=== PATIENT | female | born 1965 | race Caucasian/White ===

== ENCOUNTER 2016-07-17 10:38 | Inpatient (IN) ==
[2016-07-17] MEDS ORDERED: KETOROLAC 30 MG/1 ML VIAL IV STA (11:35)
[2016-07-17] MEDS ORDERED: HYDROmorphone 2 MG/1 ML VIAL IV STA (11:35)
[2016-07-17] MEDS ORDERED: ONDANSETRON 4 MG/2 ML VIAL IV STA (11:35)
[2016-07-17] MEDS ORDERED: SODIUM CHLORIDE 0.9% 1,000 ML IV STA ×2 (11:35→15:17)
[2016-07-17 11:43] LABS: Apearance,Urine CLOUDY (Clear); Bacteria,Urine Many /HPF (Few); Bilirubin,Urine Negative (Negative); Blood, Urine Small mg/dL (Negative); Glucose,Urine (UA) Negative (Negative); Ketones,Urine Negative (Negative); Mucus,Urine Many /LPF (Occasional); Nitrite,Urine Positive (Negative); Protein,Urine 30 MG/DL; RBC,Urine 8 /HPF (0-4); Squamous Epithelial Cell,Urine Occasional /HPF (0-10); Urine Color Yellow (Yellow); Urine Specific Gravity 1.021 (1.001-1.035); Urine Urobilinogen < 2.0 EU/DL (0.2-1.0); WBC,Urine 191 /HPF (0-6)
[2016-07-17 11:54] LABS: Basophils % 0.4 % (0.0-0.8); Eosinophils # 0.1 10*3/uL (0.0-0.87); Eosinophils % 1.8 % (0.00-10.9); Hematocrit 36.9 VOL% (35.7-47.0); Hemoglobin 12.8 GM/DL (12.0-16.0); Immature Granulocytes % 0.2 %; Immature Granulocytes Absolute 0.01 #; Lymphocytes # 1.3 10*3/uL (1.4-4.0); Lymphocytes % 23.1 % (21.3-54.2); Mean Corpuscular HGB Conc 34.7 GM/DL (32-36); Mean Corpuscular Hemoglobin 31 PG (27-34); Mean Corpuscular Volume 90.2 FL (87-102); Mean Platelet Volume 9.9 FL (9.6-12.0); Monocytes # 0.5 10*3/uL (0.11-0.8); Monocytes % 9.1 % (1.7-12.7); Neutrophils # 3.7 10*3/uL (1.4-7.4); Neutrophils % 65.4 % (38.7-73.9); Platelet Count 195 10*3/uL (130-400); Red Blood Count 4.09 10*6/uL (3.8-5.5); Red Cell Distribution Width 12.3 % (9.3-17.3); White Blood Count 5.6 10*3/uL (4.5-13.71)
[2016-07-17] MEDS ORDERED: ONDANSETRON 4 MG/2 ML VIAL ONE (12:14)
[2016-07-17] MEDS ORDERED: HYDROmorphone 2 MG/1 ML VIAL ONE (12:15)
[2016-07-17] MEDS ORDERED: KETOROLAC 30 MG/1 ML VIAL ONE (12:15)
[2016-07-17] MEDS ORDERED: cefTRIAXone 1,000 MG in SODIUM CHLORIDE 0.9% 100 ML IV STA (12:16)
[2016-07-17 12:21] LABS: Albumin 3.5 G/DL (3.4-5.0); Bilirubin,Total 0.9 MG/DL (0.2-1.0); Calcium 8.8 MG/DL (8.5-10.1); Magnesium 1.8 MG/DL (1.8-2.4); Osmolality,Calculated 283.1 MOS/KG (273-304); Potassium 3.8 MMOL/L (3.5-5.1); Total Protein 7.1 G/DL (6.4-8.3)
--- NOTE | 2016-07-17 12:25 | Emergency Department Note ---
Joseph Aj Gwan, am scribing for, and in the presence of, Bib Alcaraz MD 11 :45. Lissa Aj Charles R, MD, personally performed the services described in this documentation, ascribed by Abhay Ruiz in my presence, and it is both accurate and complete 225 . Arrival - Arrival Chief Complaint: Urogenital - Female Stated Complaint: Bleeding when urinating chest pain ED Nursing Triage Note: reports bleeding with urination that started last night with burning with urination and vaginal pain. reports she also has a knot on her chest that is tender to touch. near syncopal episode with fall following triage. Mode of Arrival: Ambulatory Limitations: No Limitations Source: Patient, Old Records Reviewed, RN Notes Reviewed Time Seen by Provider: 07/17/16 11:27 - History of Present Illness HPI Narrative: Pt is a 51 y/o female, with a hx of Hysterectomy; Cervical CA; Kidney Stones, with a c/o hematuria and vaginal pain with an onset last night. Patient stated that she began having a sharp pain in her side, vaginal pain and dysuria last night. She continued to note that she took some OTC medication with no relief. Patient then stated that this morning her sxs worsened and included left breast chest pain, fever, back pain and lightheadedness prompting her visit to the ED. At time of triage, pt's temperature was 98.7. Patient then stated that she fell last week while carrying a shelf and the shelf fell on top of her causing a near syncope episode. No other problems/complaints reported in ED. Onset (ago): day(s) Consistency: constant Severity: moderate Date of Last Menstrual Period: hyst Allergies/Adverse Reactions: Allergies Allergy/AdvReac Type Severity Reaction Status Date / Time morphine Allergy RASH Verified 07/17/16 11:02 Home Medications: Home Medications Medication Instructions Recorded Confirmed Type No Known Home Medications [No 07/17/16 07/17/16 History Known Home Medications] Review of System - Review of System 12 point system: reviewed and no additional remarkable complaints except as stated - Review of System Constitutional: Present: as per HPI, fever Genitourinary female: Present: as per HPI, dysuria, hematuria Medical,Surgical,& Family Hx - Medical History Other: History of: Miscellaneous Medical Problems (meneers disease) - Social History Smoking Status: Never smoker Exam Vital Signs: Vital Signs Temperature 98.7 F 07/17/16 10:57 Pulse Rate 82 07/17/16 10:57 Respiratory Rate 18 07/17/16 10:57 Blood Pressure 112/78 07/17/16 10:57 O2 Sat by Pulse Oximetry 100 07/17/16 10:57 - General General appearance: alert, in no apparent distress - Head Head exam: Present: atraumatic, normocephalic - Eye Eye exam: Present: normal appearance, PERRL, EOMI - ENT ENT exam: Present: normal oropharynx, mucous membranes moist, TM's normal bilaterally, normal external ear exam - Neck Neck exam: Present: full ROM, trachea midline. Absent: tenderness, meningismus , lymphadenopathy - Chest Chest inspection: Present: tenderness (Tenderness top of left breast) - Respiratory Respiratory exam: Present: normal lung sounds bilaterally. Absent: respiratory distress - Cardiovascular Cardiovascular exam: Present: regular rate, normal rhythm, normal heart sounds. Absent: murmur, rubs, gallop - Abdominal Exam Abdominal exam: Present: tenderness (LLQ) - Back Exam Back exam: Present: tenderness (Left flank tenderness) - Neurological Exam Neurological exam: Present: alert, oriented X3, CN II-XII intact. Absent: motor sensory deficit - Psychiatric Psychiatric exam: Present: normal affect, normal mood - Skin Skin exam: Present: warm, dry, intact, normal color Course - Consultations Consultation #1: Patient was instructed to follow up with OBGYN for Mammogram due to left breast tenderness. Consultation #2: Hospitalist will admit patient Time: 14:33 Results - Labs CBC & BMP: 07/17/16 11:27 07/17/16 11:27 Lab Results: I have reviewed the patients labs Labs: Laboratory Tests 07/17/16 07/17/16 11:27 11:27 WBC 5.6 RBC 4.09 Hgb 12.8 Hct 36.9 Plt Count 195 Lymph # (Auto) 1.3 L Urine pH 5.0 Ur Specific Philip 1.021 Urine Protein 30 Urine Blood Small Urine Nitrate Positive H Urine Urobilinogen < 2.0 H Urine Leukocytes Large H Urine RBC 8 Urine WBC 191 Ur Squamous Epith Cells Occasional Urine Bacteria Many Urine Mucus Many Laboratory Tests 07/17/16 11:27 Sodium 142 Potassium 3.8 Chloride 107 Carbon Dioxide 28 BUN 14 Creatinine 0.60 BUN/Creatinine Ratio 23.00 H Globulin 3.6 H Albumin/Globulin Ratio 0.9 L - Diagnostic Findings Procedure: Abdominal x-ray: report reviewed by me (No acute radiographic abnormality in the abdomen. ), Chest x-ray: report reviewed by me (No acute cardiopulmonary process. ), CT Abdomen and Pelvis: report reviewed by me (1. A few distal descending diverticula are noted. There is also minimal pericolonic stranding within the left paracolic gutter which may represent mild underlying acute diverticulitis. Correlate with clinical symptomatology. 2. Otherwise, no acute abnormality within the abdomen/pelvis to explain patient's symptoms. ) Disposition Clinical Impression: Urinary tract infection, Hematuria, Diverticulitis, Hypotension Case discussed with: patient Disposition: Still a Patient Condition: Guarded Time of Disposition: 14:34
--- NOTE | 2016-07-17 12:35 | CT Report ---
CT abdomen pelvis wo con Indication: Abdominal/pelvic pain Comparison: None. Technique: CT of the abdomen and pelvis was performed without administration of intravenous contrast. Coronal and sagittal reformatted images were additionally created and submitted for review. The total DLP is 305 mGy*cm. Findings: Very minimal posterior basilar dependent atelectatic changes are noted bilaterally. Lung bases are otherwise clear. There is no pleural or pericardial effusion. ABDOMEN: Liver/Gallbladder: Unenhanced appearance of the liver is grossly within normal limits. The gallbladder is nondistended. There is no biliary ductal dilatation or gallstones visualized. Spleen: No acute findings. Pancreas: No acute findings. Adrenals: Within normal limits in appearance. Kidneys: Both kidneys are symmetric in size. There is no evidence of obstructive uropathy. No renal stones are visualized. Bowel/mesentery: Small bowel is nondilated. There is no free fluid/air within the abdomen. There is no mesenteric adenopathy. There is a moderate amount stool noted throughout the colon which is otherwise nondilated. A few distal descending/sigmoid colon diverticula are noted. There is also minimal pericolonic stranding noted within the left paracolic gutter suggesting underlying diverticulitis. Retroperitoneum: No evidence of aortic aneurysm or significant retroperitoneal adenopathy. PELVIS: Bladder appears unremarkable for degree of distention. There has been a prior hysterectomy. There is no free fluid/adenopathy in the pelvis. BONES: No acute or suspicious osseous abnormalities are identified. IMPRESSION: 1. A few distal descending diverticula are noted. There is also minimal pericolonic stranding within the left paracolic gutter which may represent mild underlying acute diverticulitis. Correlate with clinical symptomatology. 2. Otherwise, no acute abnormality within the abdomen/pelvis to explain patient's symptoms. 07/17/2016 12:26 PM PROCEDURE INTERPRETED AT [facility] DEPARTMENT OF RADIOLOGY Final Report Signed by: Denzel Fernandez
--- NOTE | 2016-07-17 12:36 | XRay Report ---
XR abdomen 2V Clinical Information: Abdominal Pain , left lower quadrant and pelvic pain Comparison: Prior none available Findings: Bowel gas pattern is nonspecific and within normal limits. No abnormally dilated small bowel loops are identified to suggest obstruction. There is no free air identified. Scattered fecal material is noted throughout colon, which is otherwise nondilated. No abnormal focal soft tissue masses or calcific densities are identified in the abdomen or pelvis. Lung bases appear predominantly clear. There is no acute osseous abnormality. No suspicious osseous lesions are identified. Impression: No acute radiographic abnormality in the abdomen. A mild degree of fecal stasis/constipation is suspected. See the separately dictated CT abdomen pelvis report dated same day. PROCEDURE INTERPRETED AT [facility] DEPARTMENT OF RADIOLOGY Final Report Signed by: Denzel Fernandez
--- NOTE | 2016-07-17 12:37 | XRay Report ---
Exam: XR chest 1V portable Indication: Abdominal pain, diverticulitis Comparison study: None Findings: The heart, mediastinum, and bony structures are within normal limits. There is no focal consolidation, pneumothorax or pleural effusion identified. Impression: No acute cardiopulmonary process. PROCEDURE INTERPRETED AT [facility] DEPARTMENT OF RADIOLOGY Final Report Signed by: Denzel Fernandez
[2016-07-17] MEDS ORDERED: cefTRIAXone 1,000 MG VIAL ONE (13:17)
[2016-07-17] MEDS ORDERED: SODIUM CHLORIDE 0.9% 100 ML IV ONE (13:18)
[2016-07-17] MEDS ORDERED: MAGNESIUM SULF RIDER 4 GM in PREMIX 1 EACH IV PRN (15:06)
[2016-07-17] MEDS ORDERED: MAGNESIUM SULF RIDER 2 GM in PREMIX 1 EACH IV PRN (15:06)
--- NOTE | 2016-07-17 15:13 | Hospitalist History & Physical ---
Assessment and Plan - Time spent with patient Time spent with patient: Greater than 30 minutes (1) Urinary tract infection Status: Acute Assessment and plan: Start Cipro. Follow-up culture. Current Visit: Yes Qualifiers: Urinary tract infection type: acute cystitis Hematuria presence: with hematuria Qualified Code(s): N30.01 - Acute cystitis with hematuria (2) Hematuria Status: Acute Assessment and plan: Related to urinary tract infection. Follow-up culture. Current Visit: Yes (3) Diverticulitis of intestine Status: Acute Assessment and plan: Start Cipro and Flagyl. Follow-up stool studies. Check C. difficile. Current Visit: Yes Qualifiers: Diverticulitis site: large intestine Diverticulitis bleeding: without bleeding Diverticulitis complication: without perforation or abscess Qualified Code(s): K57.32 - Diverticulitis of large intestine without perforation or abscess without bleeding History of Present Illness Chief complaint: abdominal pain, diarrhea History of present illness: Ms. Stiles is a 51 year old female that presented to the emergency department today with a one-day history of abdominal pain in the left lower quadrant and diarrhea. She reports pain and pressure in the bottom left side of her abdomen and left lower quadrant. She reports multiple bouts of diarrhea last night. She also reports pain and pressure over the bladder that radiates into her vagina and some blood with urination. She denies any gross blood with defecation. She has a history of previous Clostridium difficile infection approximately 2 years ago. She underwent colonoscopy in [place] at that time. She also carries a diagnosis of irritable bowel syndrome/spastic colon. She reports the symptoms that began yesterday were quite different than her previous episodes. Evaluation in the emergency department shows an acute urinary tract infection that is nitrite positive as well as CT scan evidence of mild diverticulitis. She has been referred to the hospital service for admission for IV antibiotics and IV fluids as well as pain control. Home Medications Medication Instructions Recorded Confirmed Type No Known Home Medications [No 07/17/16 07/17/16 History Known Home Medications] Allergies Allergy/AdvReac Type Severity Reaction Status Date / Time morphine Allergy RASH Verified 07/17/16 11:02 Medical,Surgical,& Family Hx - Medical History Other: History of: Miscellaneous Medical Problems (meneers disease) - Surgical History Abdominal Surgeries: Surgical HX of: Appendectomy Reproductive Surgeries: Surgical HX of;: Hysterectomy Additional Surgical History: Previous lumpectomy and nose surgery. - Family History Family History: noncontributory - Social History Smoking Status: Never smoker Have you smoked in the last 12 months: No Frequency of Alcohol Use: None Type of Drug Use: None Functional capacity: independent ambulation 12 point system: reviewed and no additional remarkable complaints except as stated - Constitutional Constitutional: Present: as per HPI - Gastrointestinal Gastrointestinal: Present: as per HPI, abdominal pain, change in bowel habits, cramping, diarrhea, loose stools. Absent: hematemesis, hematochezia Exam - Constitutional Vitals: Period Temp Pulse Resp BP Sys/Padilla Pulse Ox Last 24 Hr 98.7 F 82 18 112/78 100 General appearance: normal weight, mild distress - Head Head exam: Present: normal inspection, normocephalic, atraumatic - Eye Eye exam: Present: EOMI Pupils: Present: CARLOS - ENT ENT exam: Present: normal exam - Respiratory Respiratory exam: Present: clear to auscultation bilaterally - Cardiovascular Cardiovascular exam: Present: regular rate and rhythm - GI/Abdominal GI/Abdominal exam: Present: normal bowel sounds, tenderness (LLL), soft. Absent : mass - Extremities Exam Extremities exam: Present: normal inspection, normal capillary refill. Absent: edema - Back Exam Back exam: Present: normal inspection - Neurological Exam Neurological exam: Present: alert, oriented X3 - Psychiatric Psychiatric exam: Present: normal affect, normal mood - Skin Skin exam: Present: normal color, warm, dry Results - Labs CBC & BMP: 07/17/16 11:27 07/17/16 11:27 Lab Results: I have reviewed the past 24 hour labs
[2016-07-17] MEDS ORDERED: MEPERIDINE 25 MG/1 ML VIAL ONE (15:28)
[2016-07-17] MEDS: MEPERIDINE 25 MG/1 ML VIAL IV PRN ×2 (15:31→21:03)
[2016-07-17] MEDS: metroNIDAZOLE INJ 500 MG in PREMIX 1 EACH IV SCH ×2 (17:35→23:39)
[2016-07-17] MEDS: CIPROFLOXACIN INJ 400 MG in PREMIX 1 EACH IV SCH (17:36)
[2016-07-17] MEDS: DEXTROSE 5% NACL 0.45% 1,000 ML IV SCH (17:36)
[2016-07-17] MEDS: ENOXAPARIN 40 MG/0.4 ML SYRINGE SUBCUT SCH (17:36)
[2016-07-17] MEDS: ACETAMINOPHEN 325 MG TABLET PO PRN (21:03)
[2016-07-17] MEDS: ONDANSETRON 4 MG/2 ML VIAL IV PRN (23:39)
[2016-07-18] MEDS: metroNIDAZOLE INJ 500 MG in PREMIX 1 EACH IV SCH ×4 (03:50→21:27)
[2016-07-18] MEDS: CIPROFLOXACIN INJ 400 MG in PREMIX 1 EACH IV SCH ×2 (04:51→16:00)
[2016-07-18 05:21] LABS: Basophils % 0.3 % (0.0-0.8); Eosinophils # 0.1 10*3/uL (0.0-0.87); Eosinophils % 2.8 % (0.00-10.9); Hematocrit 29.8 VOL% (35.7-47.0); Immature Granulocytes % 0.3 %; Immature Granulocytes Absolute 0.01 #; Lymphocytes # 1.3 10*3/uL (1.4-4.0); Lymphocytes % 37.3 % (21.3-54.2); Mean Corpuscular HGB Conc 33.6 GM/DL (32-36); Mean Corpuscular Hemoglobin 30 PG (27-34); Mean Platelet Volume 10.3 FL (9.6-12.0); Monocytes # 0.4 10*3/uL (0.11-0.8); Monocytes % 10.5 % (1.7-12.7); Neutrophils # 1.7 10*3/uL (1.4-7.4); Neutrophils % 48.8 % (38.7-73.9); Platelet Count 158 10*3/uL (130-400); Red Blood Count 3.31 10*6/uL (3.8-5.5); Red Cell Distribution Width 12.2 % (9.3-17.3); White Blood Count 3.5 10*3/uL (4.5-13.71)
[2016-07-18 05:41] LABS: Elliptocytes Few; Hypochromasia Slight; Platelet Estimate Normal
[2016-07-18] MEDS: DEXTROSE 5% NACL 0.45% 1,000 ML IV SCH ×4 (06:30→21:26)
[2016-07-18] MEDS ORDERED: KETOROLAC 30 MG/1 ML VIAL IV PRN (07:10)
[2016-07-18] MEDS: PANTOPRAZOLE 40 MG TABLET PO SCH (09:28)
[2016-07-18] MEDS: MEPERIDINE 25 MG/1 ML VIAL IV PRN ×2 (09:30→17:40)
[2016-07-18] MEDS: ONDANSETRON 4 MG/2 ML VIAL IV PRN ×2 (09:30→17:40)
[2016-07-18] MEDS: ACETAMINOPHEN 325 MG TABLET PO PRN (14:30)
[2016-07-18] MEDS: ENOXAPARIN 40 MG/0.4 ML SYRINGE SUBCUT SCH (14:32)
--- NOTE | 2016-07-18 16:49 | Hospitalist Progress Note ---
Assessment and Plan (1) Urinary tract infection Status: Acute Assessment and plan: Start Cipro. Follow-up culture.. Gram-negative rods noted. Current Visit: Yes Qualifiers: Urinary tract infection type: acute cystitis Hematuria presence: with hematuria Qualified Code(s): N30.01 - Acute cystitis with hematuria (2) Hematuria Status: Acute Assessment and plan: Related to urinary tract infection. Follow-up culture. Current Visit: Yes (3) Diverticulitis of intestine Status: Acute Assessment and plan: Start Cipro and Flagyl. Follow-up stool studies. Check C. difficile. Current Visit: Yes Qualifiers: Diverticulitis site: large intestine Diverticulitis bleeding: without bleeding Diverticulitis complication: without perforation or abscess Qualified Code(s): K57.32 - Diverticulitis of large intestine without perforation or abscess without bleeding Hospitalist: Subjective Interval history: Mrs. Stiles is a 51-year-old female that was admitted with diverticulitis and abdominal pain as well as urinary tract infection. She feels better today but still has abdominal pain left lower quadrant abdominal pain. No bowel movements or diarrhea. No blood. Exam - Constitutional Vitals: Period Temp Pulse Resp BP Sys/Padilla Pulse Ox Last 24 Hr 97.5 F-98.3 F 59-73 16-20 98-120/46-66 92-98 General appearance: no acute distress - Head Head exam: Present: normal inspection, normocephalic - Respiratory Respiratory exam: Present: clear to auscultation bilaterally - Cardiovascular Cardiovascular exam: Present: regular rate and rhythm - GI/Abdominal GI/Abdominal exam: Present: normal bowel sounds, tenderness, soft. Absent: rebound - Extremities Exam Extremities exam: Present: normal inspection, normal capillary refill. Absent: edema - Neurological Exam Neurological exam: Present: alert, oriented X3 - Psychiatric Psychiatric exam: Present: normal affect, normal mood Results - Labs CBC & BMP: 07/18/16 04:41 07/17/16 11:27 Lab Results: I have reviewed the past 24 hour labs Quality Measures - Stroke Symptom Onset Unknown: No Specialty Discharge - Follow Up or Referrals - Discharge Medications No Action No Known Home Medications [No Known Home Medications]
[2016-07-19] MEDS: metroNIDAZOLE INJ 500 MG in PREMIX 1 EACH IV SCH ×2 (03:37→08:53)
[2016-07-19] MEDS: CIPROFLOXACIN INJ 400 MG in PREMIX 1 EACH IV SCH (04:52)
--- NOTE | 2016-07-19 07:29 | Discharge Summary ---
<Monica Courtney - Last Filed: 07/19/16 07:25> Hospital Course - Hospital Course Hospital Course: Ms. Stiles was admitted on 07/17 with a UTI and acute diverticulitis. CT abdomen/ pelvis was obtained and showed mild divertiulitis. She was started on Flagyl and Cipro IV for her diverticulitis and UTI. Her Urine grew gram negative rods. She also had some hematuria, but this was felt to be related to her UTI. Her labs are stable, as are her vital signs. This morning, she states that her abdominal pain is better, but she continues to be "sore" in her LLQ. It is felt that she is ready for discharge and will be sent home today on appropriate medications and follow up. - Time spent with patient Time with patient DS: Greater than 30 minutes (due to plan, doc and med rec.) Diagnosis - Discharge Diagnosis (1) Diverticulitis of intestine Status: Acute (2) Hematuria Status: Acute (3) Urinary tract infection Status: Acute Specialty Discharge - Follow Up or Referrals - Discharge Medications No Action No Known Home Medications [No Known Home Medications] Discharge Plan - Discharge Data Disposition: Disch To Home/Self Care - Discharge Medications New Ciprofloxacin Tab [Cipro Tab] 500 mg PO BID #16 tablet HYDROcodone/ACETAMIN 10-325 [[place] 10-325] 1 tablet PO Q4H PRN #20 tablet PRN Reason: Pain Severe (8-10) metroNIDAZOLE TAB [Flagyl Cap/Tab] 500 mg PO TID #24 tablet - Follow Up or Referral - Forms/Instructions Exam - Constitutional Vitals: Period Temp Pulse Resp BP Sys/Padilla Pulse Ox Last 24 Hr 97.6 F-101.6 F 59-84 16-20 93-121/52-64 89-98 General appearance: normal weight, no acute distress - Head Head exam: Present: normal inspection, normocephalic - Eye Eye exam: Present: EOMI. Absent: scleral icterus Pupils: Present: CARLOS, normal accommodation - ENT ENT exam: Present: normal exam, normal oropharynx - Neck Neck exam: Present: normal inspection. Absent: lymphadenopathy - Respiratory Respiratory exam: Present: clear to auscultation bilaterally. Absent: accessory muscle use - Cardiovascular Cardiovascular exam: Present: regular rate and rhythm - GI/Abdominal GI/Abdominal exam: Present: normal bowel sounds, tenderness (LLQ but much improved- mainly "sore") - Extremities Exam Extremities exam: Present: normal inspection. Absent: edema - Back Exam Back exam: Present: normal inspection. Absent: muscle spasm - Neurological Exam Neurological exam: Present: alert, oriented X3 - Psychiatric Psychiatric exam: Present: normal affect, normal mood - Skin Skin exam: Present: normal color, warm, dry, intact Discharge Results Labs on day of discharge: Preliminary micro results at discharge 07/17/16 Unknown Urine Culture - Preliminary Urine,Voided Gram Negative Rods DS: Provider Date of admission: 07/17/16 15:06 Primary care physician: . No PCP Attending physician on admission: Matilde Freeman MD Consults: 07/17/16 15:21 Consult to Pharmacy [CONS] Routine Reason for Pharmacy Consult: Adjust Meds Renal Funct Discharging clinician: Monica Courtney NP Expected date of discharge: 07/19/16 <Matilde Freeman - Last Filed: 07/19/16 09:03> Hospital Course - Hospital Course Hospital Course: Patient seen and examined independently on the day of discharge. Her symptoms have improved dramatically. She has had no fever during the course of the hospitalization. She'll be discharged with Cipro and Flagyl oral antibiotics to complete a ten-day course. She is advised to follow up with gastroenterology as an outpatient. I agree with the above hospital course dictated by the nurse practitioner. - Time spent with patient Time with patient DS: Greater than 30 minutes Diagnosis - Discharge Diagnosis (1) Urinary tract infection Status: Acute (2) Hematuria Status: Acute (3) Diverticulitis of intestine Status: Acute Discharge Plan - Discharge Data Condition at Discharge: Stable Discharge Diet: advance to your usual diet, high fiber diet Activity: resume usual activities as tolerated Hygiene: no restrictions Contact your physician if you experience:: fever over 101, Difficulty voiding, pain uncontrolled by pain medications
[2016-07-19] MEDS: PANTOPRAZOLE 40 MG TABLET PO SCH (08:52)
[2016-07-19] MEDS: DEXTROSE 5% NACL 0.45% 1,000 ML IV SCH ×2 (08:53)
[2016-07-19 12:10] VITALS: BP 109/71
== END 2016-07-19 11:46 | disposition home or self-care (01) | DRG 690 ==
LOC: N.ED 10:38 → N.EDINP 15:06 → N.3E 15:38
PROVIDERS: ADMIT Family Medicine; ATTEND Family Medicine